=== PATIENT | female | born 1985 | race Two or more races ===

== ENCOUNTER 2024-04-13 13:06 | Outpatient (RCR) | payer MEDICAID, SELFPAY ==
--- NOTE | 2024-04-13 14:39 | PT.OIERPT ---
PT OP Initial Eval Patient Information Outpatient Physical Therapy Treatment Date: 04/13/24 Visit Reasons: lOW BACK PAIN Medical Diagnosis: Back Pain Treatment Dx #1: Back Pain Treatment Dx #2: L/S Mobility Deficits Start of Care: 04/13/24 Date of Onset: 1 year ago Smoking Status Smoking Status: Never smoker Initial Assessment Subjective: Pt is a 38 y/o male reports of chronic back pain with bilateral numbness down her legs to the knees. Pt's most recent xray showed DDD of the disc no MRI yet. Pt has limitation with bending, standing, chores, self care, work duties, lifting, walking, and performing recreational activities. Objective: L/S AROM: all motions are WFL except end range pain into flexion and extension Hip PROM: all motions are WFL except IR Hip MMTs: grossly 3+/5 Special Test (+) slump (+) SLR (+) de la cruz Muscle Length: Hs tightness Palpation: Increase right paraspinal tone L2-L4 region Assessment: Pt demonstrate back pain with mobility deficits consistent with discogenic lesion leading to difficulty with ADLs. 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 1) Increase L/S AROM WNL in 6 wks to be able to perform chores 2) Decrease back pain to 2/10 in 6 wks to be able to perform work duties 3) Increase core strength WFL in 6 wks to be able to perform recreational activities 4) Increase hip AROM WNL in 6 wks to be able to perform lifting activities 5) Teach proper lifting electro mechanic in 6 wks to prevent future back pain 6) Indep with HEP Treatment Plan 1) Manual Therapy 2) Therapeutic Activities 3) Therapeutic Exercises 4) Modalities (ice, heat, traction) Frequency and Duration: 2 x wk for 6 wks Certification Dates: 04/13/24 to 07/14/24 Procedure Charges OP PT Eval Mod Complex 30 minutes: Yes
== END 2024-04-22 23:59 | disposition home or self-care (01) ==
LOC: CPTX 13:06
PROVIDERS: PCP Physician Assistant Medical; Referring Provider Physician Assistant Medical; Visit Provider Physician Assistant Medical
DX: M54.9 Dorsalgia, unspecified (principal); R20.0 Anesthesia of skin; G89.29 Other chronic pain
CPT/HCPCS: 97162

== ENCOUNTER 2024-05-10 15:30 | Outpatient (RCR) | payer MEDICAID, SELFPAY ==
--- NOTE | 2024-04-24 13:55 | PT.ODAYNRPT ---
PT Outpatient Daily Note OP Daily Note Outpatient Physical Therapy Treatment Date: 04/24/24 Visit Reasons: Low back pain Subjective: Pt continues to have back pain. Objective: Please see flow chart for list of ther ex performed Assessment: pre heat helped patient tolerate exercises. minimal changes in pain post PT session Plan: Continue with PT Length of Time (minutes) of Treatment: 30 Minutes Procedure Charges Therapeutic Exercise 30 minutes: Yes
--- NOTE | 2024-04-26 14:32 | PT.ODAYNRPT ---
PT Outpatient Daily Note OP Daily Note Outpatient Physical Therapy Treatment Date: 04/26/24 Visit Reasons: Low back pain Subjective: Pt c/o low back pain and pain on L glute going down posterior thigh. Objective: Please see flow sheet for ther ex list. Assessment: Pt instructed on repeated lumbar extension in laying, pt responded with decrease pain down L thigh. Pt encouraged to perform for HEP. Plan: Continue with POC. Length of Time (minutes) of Treatment: 30 Minutes Procedure Charges Therapeutic Exercise 30 minutes: Yes
--- NOTE | 2024-05-10 15:48 | PT.ODAYNRPT ---
PT Outpatient Daily Note OP Daily Note Outpatient Physical Therapy Treatment Date: 05/10/24 Visit Reasons: Low back pain Subjective: Pt reports progress with symptoms mentioned LE symptoms have lessened and decrease in back pain. Pt shared that she continues to have worsening stiffness in the morning. Objective: Please see flow sheet for ther ex list. Assessment: Pt presents in clinic with decrease lumbar pain allowing for intervention progression. Plan: Continue with POC. Length of Time (minutes) of Treatment: 30 Minutes Procedure Charges Therapeutic Exercise 30 minutes: Yes
== END 2024-05-23 23:59 | disposition home or self-care (01) ==
LOC: CPTX 15:30
PROVIDERS: PCP Physician Assistant Medical; Referring Provider Physician Assistant Medical; Visit Provider Physician Assistant Medical
DX: M54.50 Low back pain, unspecified (principal); R26.2 Difficulty in walking, not elsewhere classified; R20.0 Anesthesia of skin; G89.29 Other chronic pain
CPT/HCPCS: 97110

== ENCOUNTER 2024-06-01 15:00 | Outpatient (RCR) | payer MEDICAID, SELFPAY ==
--- NOTE | 2024-05-25 16:02 | PT.ODAYNRPT ---
PT Outpatient Daily Note OP Daily Note Outpatient Physical Therapy Treatment Date: 05/25/24 Visit Reasons: Low back pain Subjective: Pt's back pain is about the same. Pt continues to have numbness down her legs. Physical therapy has not changed the symptoms much Objective: Please see flow chart for list of ther ex performed Assessment: minimal progression with exercises to day due to pain. Heat helped patient tolerate supine exercises Plan: Continue with PT Length of Time (minutes) of Treatment: 30 Minutes Procedure Charges Therapeutic Exercise 30 minutes: Yes
--- NOTE | 2024-06-01 15:25 | PT.ODS1RPT ---
PT OP Progress/Discharge Note Date of Service: 06/01/24 Progress Note/DC Note Progress Note/Discharge Note: DC Note Patient Information Visit Reasons: Low back pain Medical Diagnosis: Back Pain Treatment Dx #1: L/S Mobility Deficits Service Discharge Date: 06/01/24 Status Subjective: Pt's back is about the same. Pt continues to have pain leading to difficulty with ADLs. Pt will like to stop physical therapy and follow up with MD. Pt continues to have numbness down her legs. Objective: L/S AROM: all motions are WFL with pain into flexion and extension Hip PROM: all motions are WFL except IR Hip MMTs: grossly 3+/5 Special Test (+) slump (+) Assessment: Pt continues to have pain with mobility deficits and numbness down the LEs leading to difficulty with ADLs. Pt will no longer benefit from physical therapy due to minimal progress towards goals. Recommend MRI to help rule in/out nature of pain. Pt was instructed on HEP last session and educated to continue exercises to maintain overall mobility. Pt performed all exercises safely, thank you for your referrals. Plan: D/C home with HEP and follow up with PRN Recommend L/S MRI Procedure Charges Therapeutic Exercise 30 minutes: Yes
== END 2024-06-23 23:59 | disposition home or self-care (01) ==
LOC: CPTX 15:00
PROVIDERS: PCP Physician Assistant Medical; Referring Provider Physician Assistant Medical; Visit Provider Physician Assistant Medical
DX: M54.50 Low back pain, unspecified (principal); R20.0 Anesthesia of skin; R26.2 Difficulty in walking, not elsewhere classified; G89.29 Other chronic pain
CPT/HCPCS: 97110

== ENCOUNTER → 2025-02-23 | Outpatient (CLI) | payer MEDICAID, SELFPAY ==
--- NOTE | 2025-02-23 13:30 | XR_ITS ---
Examination: MRI lumbar spine without contrast Date and time of exam: February 23, 2025, 1423 hours INDICATIONS: Low back pain 2 years. Technique: Multiple MRI axial and sagittal sections lumbar spine. Sagittal T2-weighted images, TR 3500, TE 118 T1 weighted transverse sections, TR 688 T8.5, T2-weighted sagittal sections T1 weighted sagittal sections TR 621, TE 30 T2 axial sections, TR 4, 190, TE 84. Findings: Transitional S1 vertebral body Moderate disc narrowing L5-S1 L5-S1 5 mm central lumbar disc bulge The cephalad levels unremarkable IMPRESSION: Taking into account transitional S1 vertebral body, moderate disc narrowing L5-S1 L5-S1 5 mm central lumbar disc bulge
== END | disposition home or self-care (01) ==
LOC: SMRI 12:51
PROVIDERS: PCP Physician Assistant Medical; Referring Provider Physician Assistant Medical; Visit Provider Physician Assistant Medical
DX: M48.07 Spinal stenosis, lumbosacral region (principal)
CPT/HCPCS: 72148